=== PATIENT | female | born 1970 | race Caucasian/White ===

== ENCOUNTER → 2016-06-18 | Outpatient (CLI) | payer MEDICAID ==
[~2016-06-18] MED LIST: LISINOPRIL10 MG PO; NEURONTIN800 MG PO; PAXIL40 M1 PO; ROXICODONE5 MG PO; ZANAFLEX4 MG NG
[2016-06-18 14:59] LABS: AMPHETAMINES/METAMPHETAMINES NEGATIVE ng/mL (<1000)
== END ==
LOC: LAB 13:53
PROVIDERS: Emergency Medicine
DX: Z79.899 Other long term (current) drug therapy (principal)

== ENCOUNTER → 2016-07-31 | Outpatient (CLI) | payer MEDICAID ==
[2016-07-31 17:24] LABS: AMPHETAMINES/METAMPHETAMINES NEGATIVE ng/mL (<1000)
== END ==
LOC: LAB 16:47
PROVIDERS: Emergency Medicine
DX: Z79.899 Other long term (current) drug therapy (principal)

== ENCOUNTER → 2017-02-01 | Outpatient (CLI) | payer MEDICAID ==
[2017-02-01 16:58] LABS: AMPHETAMINES/METAMPHETAMINES NEGATIVE ng/mL (<1000)
== END ==
LOC: LAB 15:29
PROVIDERS: Emergency Medicine
DX: Z79.899 Other long term (current) drug therapy (principal)

== ENCOUNTER → 2017-03-05 | Outpatient (CLI) | payer MEDICAID ==
[2017-03-05 19:12] LABS: AMPHETAMINES/METAMPHETAMINES NEGATIVE ng/mL (<1000)
== END ==
LOC: LAB 16:54
PROVIDERS: Emergency Medicine
DX: Z79.899 Other long term (current) drug therapy (principal)

== ENCOUNTER → 2017-04-03 | Outpatient (CLI) | payer MEDICAID ==
[2017-04-03 11:31] LABS: AMPHETAMINES/METAMPHETAMINES NEGATIVE ng/mL (<1000)
[2017-04-08 14:36] LABS: Opiates Negative (Cutoff=100)
== END ==
LOC: LAB 10:57
PROVIDERS: Emergency Medicine
DX: Z79.899 Other long term (current) drug therapy (principal)

== ENCOUNTER → 2017-04-05 | Outpatient (CLI) | payer MEDICAID ==
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
== END ==
LOC: RAD 04-04 09:45
DX: M54.5 Low back pain (principal); S39.92XA Unspecified injury of lower back, initial encounter; M51.36 Other intervertebral disc degeneration, lumbar region

== ENCOUNTER → 2017-05-21 | Outpatient (CLI) | payer MEDICAID ==
[2017-05-21 09:30] LABS: AMPHETAMINES/METAMPHETAMINES NEGATIVE ng/mL (<1000)
== END ==
LOC: LAB 08:04
PROVIDERS: Emergency Medicine
DX: Z79.899 Other long term (current) drug therapy (principal)